=== PATIENT | female | born 1950 | race Caucasian/White ===

== ENCOUNTER 2019-02-14 14:35 | Emergency (ER) | payer OTHER ==
[2019-02-14 15:19] LABS: Urine Blood 3+ (NEG); Urine Glucose NEGATIVE (NEG); Urine Protein 2+ (NEG); Urine Specific Gravity >1.030 (1.005-1.030); Urine pH 5.5 (5.0-7.0)
[2019-02-14 15:27] LABS: Basophils % 0.4 % (0-1.3); Hematocrit 39.5 % (36.0-45.0); MPV 9.5 fL (7.6-11.3)
[2019-02-14 15:34] LABS: Urine Bacteria <20 /HPF (<20); Urine Culture Reflex Order NOT NEEDED; Urine RBC >50 /HPF (NONE SEEN)
[2019-02-14 15:40] LABS: Albumin 4.1 g/dL (3.4-5.0); Bilirubin Direct 0.2 mg/dL (0-0.2); Bilirubin Total 0.8 mg/dL (0.2-1.0); Potassium 4.1 mmol/L (3.5-5.1); Protein, Total 7.3 g/dL (6.4-8.2)
--- NOTE | 2019-02-14 15:42 | RAD REPORT ---
EXAM DESCRIPTION: CT - Stone Protocol - 02/14/2019 3:13 pm CLINICAL HISTORY: Abdominal pain. Right flank pain and nausea COMPARISON: 2017 TECHNIQUE: Computed axial tomography of the abdomen pelvis was obtained without oral or IV contrast. Lack of IV and oral contrast limits evaluation of solid organs, bowel, and vessels. Coronal reformat daiana images were obtained and reviewed. All CT scans are performed using dose optimization technique as appropriate and may include automated exposure control or mA/KV adjustment according to patient size. FINDINGS: 5 millimeter calculus right renal pelvis with mild hydronephrosis. Hounsfield unit 730. A left renal calculus is not seen. An ureteral calculus is not noted. A bladder calculus is not prese nt. Small renal cysts Postsurgical changes of an umbilical hernia repair are present. A ventral hernia to the left of midli ne within the mid abdomen contains a portion of nondilated colon. An additional left ventral hernia j ust below this contains fat. The neck measures 26 millimeters Fatty liver Spleen, pancreas and adrenals appear grossly normal There is no evidence of diverticulitis. The appendix appears normal Calcified uterine fibroids. 20 millimeter right adnexal mass unchanged may represent a paraovarian cy st IMPRESSION: 5 millimeter calculus right renal pelvis resulting in mild right hydronephrosis
[2019-02-14] MEDS ORDERED: TAMSULOSIN 0.4 MG SR CAP ONE (16:01)
[2019-02-14] MEDS ORDERED: KETOROLAC 30 MG/ML INJ ONE (16:01)
[2019-02-14] MEDS ORDERED: MAGNESIUM SULFATE 1 gm IVPB 1 GM/100 ML BAG IV ONE (16:02)
[2019-02-14] MEDS ORDERED: NA CHLORIDE 0.9% 500 ML ONE (16:17)
--- NOTE | 2019-02-14 18:09 | EDPHYS ---
Physician Documentation [facility] Name: Denae Kenny Age: 69 yrs Sex: Female : 1950 Arrival Date: 02/14/2019 Time: 14:38 Bed 18 Private MD: Reinier Padgett B ED Physician Ortiz Aquino HPI: 02/14 17:15 This 69 yrs old Female presents to ER via Ambulatory with complaints of Back rn Pain, Nausea. 17:15 The patient presents with pain that is acute. The symptoms are located in the right mid rn back. Onset: The symptoms/episode began/occurred this morning. The pain radiates to the pelvis. Associated signs and symptoms: Pertinent positives: abdominal pain, dysuria, nausea, Pertinent negatives: vomiting, weakness. Modifying factors: The patient symptoms are alleviated by nothing, the patient symptoms are aggravated by nothing. Severity of symptoms: At their worst the symptoms were moderate, in the emergency department the symptoms have improved. The patient has experienced a previous episode. Historical: - Allergies: 14:41 Codeine; la1 - PMHx: 14:41 Diabetes - NIDDM; Hypertension; la1 - PSHx: 14:41 SBO; Ear Tubes; Tonsillectomy; la1 - Immunization history:: Adult Immunizations up to date. - Social history:: Smoking status: Patient/guardian denies using tobacco. - Ebola Screening: : No symptoms or risks identified at this time. - Family history:: pertinent for kidney stones. - Hospitalizations: : No recent hospitalization is reported. ROS: 17:15 Constitutional: Negative for fever, chills, and weight loss, Eyes: Negative for injury, rn pain, redness, and discharge, Neck: Negative for injury, pain, and swelling, Cardiovascular: Negative for chest pain, palpitations, and edema, Respiratory: Negative for shortness of breath, cough, wheezing, and pleuritic chest pain, Abdomen/GI: Negative for vomiting, diarrhea, and constipation, Back: + right flank pain MS/Extremity: Negative for injury and deformity, Skin: Negative for injury, rash, and discoloration, Neuro: Negative for headache, weakness, numbness, tingling, and seizure. Exam: 17:15 Constitutional: This is a well developed, well nourished patient who is awake, alert, rn and in no acute distress. Head/Face: Normocephalic, atraumatic. Eyes: Pupils equal round and reactive to light, extra-ocular motions intact. Lids and lashes normal. Conjunctiva and sclera are non-icteric and not injected. Cornea within normal limits. Periorbital areas with no swelling, redness, or edema. ENT: MMM Cardiovascular: Regular rate and rhythm. No pulse deficits. Respiratory: No increased work of breathing, no retractions or nasal flaring. Abdomen/GI: soft, non-tender Back: No spinal tenderness. No costovertebral tenderness. Full range of motion. MS/ Extremity: Pulses equal, no cyanosis. Neurovascular intact. Full, normal range of motion. Equal circumference. Neuro: Awake and alert, GCS 15, oriented to person, place, time, and situation. Cranial nerves II-XII grossly intact. Motor strength 5/5 in all extremities. Sensory grossly intact. Vital Signs: 14:41 BP 218 / 82; Pulse 68; Resp 16; Temp 97.6; Pulse Ox 98% on R/A; Weight 86.18 kg; Height la1 5 ft. 4 in. (162.56 cm); 15:29 BP 175 / 76; Pulse 66; Resp 16; Pulse Ox 100% on R/A; hb 16:23 BP 180 / 66; Pulse 57; Resp 15; Pulse Ox 100% on R/A; hb 17:15 BP 182 / 67; Pulse 64; Resp 15; Pulse Ox 100% on R/A; hb 18:15 BP 176 / 86; Pulse 66; Resp 15; Pulse Ox 100% on R/A; hb 14:41 Body Mass Index 32.61 (86.18 kg, 162.56 cm) la1 MDM: 14:42 Patient medically screened. rn 18:04 Differential diagnosis: Ureterolithiasis. Data reviewed: vital signs, nurses notes, laborer plumbing test result(s), radiologic studies, CT scan, and as a result, I will discharge patient. Counseling: I had a detailed discussion with the patient and/or guardian regarding: the historical points, exam findings, and any diagnostic results supporting the discharge/admit diagnosis, lab results, radiology results, the need for outpatient follow up, to return to the emergency department if symptoms worsen or persist or if there are any questions or concerns that arise at home. Response to treatment: the patient's symptoms have markedly improved after treatment, the patient is now symptom free, and as a result, I will discharge patient. Special discussion: I discussed with the patient/guardian in detail that at this point there is no indication for admission to the hospital. It is understood, however, that if the symptoms persist or worsen the patient needs to return immediately for re-evaluation. Based on the history and exam findings, there is no indication for further emergent testing or inpatient evaluation. I discussed with the patient/guardian the need to see the urologist for further evaluation of the symptoms. ED course: Patient on phone, comfortable, denies pain, will dc home with 5mm ureteral stone, spoke with patient at length, patient agrees, wants trial of passage to avoid surgery/intervention, will dc home as comfortable and return precautions given. Told to f/u with Dr. Monae if needed. . 02/14 14:52 Order name: Basic Metabolic Panel; Complete Time: 15:45 rn 02/14 14:52 Order name: CBC with Diff rn 02/14 14:52 Order name: Hepatic Function; Complete Time: 15:45 rn 02/14 14:52 Order name: Lipase; Complete Time: 15:45 rn 02/14 14:52 Order name: Urine Microscopic Only rn 02/14 15:14 Order name: Urine Dipstick--Ancillary (enter results) mb4 02/14 14:52 Order name: IV Saline Lock; Complete Time: 15:27 rn 02/14 14:52 Order name: Labs collected and sent; Complete Time: 15:27 rn 02/14 14:52 Order name: CT Stone Protocol; Complete Time: 15:45 rn 02/14 15:19 Order name: Urine Dipstick-Ancillary EDMS 02/14 14:52 Order name: Urine Dipstick-Ancillary (obtain specimen); Complete Time: 15:27 rn Administered Medications: 16:22 Drug: Flomax 0.4 mg Route: PO; hb 16:22 Drug: TORadol - Ketorolac 15 mg Route: IVP; Site: right antecubital; hb 16:22 Drug: Magnesium Sulfate 1 grams Route: IVPB; Infused Over: 1 hrs; Site: right hb antecubital; 16:23 Drug: NS 0.9% 500 ml Route: IV; Rate: bolus; Site: right antecubital; hb Disposition: 02/14/19 18:08 Discharged to Home. Impression: Ureterolithiasis. - Condition is Stable. - Discharge Instructions: Kidney Stones, Dietary Guidelines to Help Prevent Kidney Stones. - Prescriptions for Zofran ODT 4 mg Oral tablet,disintegrating - place 1 tablet by TRANSLINGUAL route every 8 hours As needed; 20 tablet. Ultram 50 mg Oral Tablet - take 1 tablet by ORAL route every 8 hours As needed; 20 tablet. Flomax 0.4 mg Oral Capsule, Sust. Release 24 hr - take 1 capsule by ORAL route once daily 1/2 hour following the same meal each day; 5 capsule. - Medication Reconciliation Form, Thank You Letter, Antibiotic Education, Prescription Opioid Use form. - Follow up: Keyon Monae MD; When: As needed; Reason: Recheck today's complaints, Re-evaluation by your physician. - Problem is new. - Symptoms have improved. Signatures: Dispatcher [employer] EDMS Ortiz Aquino MD MD rn Attema, Lee, RN RN la1 Archana Beckman RN RN Corrections: (The following items were deleted from the chart) 18:32 18:08 02/14/2019 18:08 Discharged to Home. Impression: Ureterolithiasis. Condition is hb Stable. Forms are Medication Reconciliation Form, Thank You Letter, Antibiotic Education, Prescription Opioid Use. Follow up: Keyon Monae; When: As needed; Reason: Recheck today's complaints, Re-evaluation by your physician. Problem is new. Symptoms have improved. rn
--- NOTE | 2019-02-14 18:09 | ER ---
Nurse's Notes [facility] Name: Denae Kenny Age: 69 yrs Sex: Female : 1950 Arrival Date: 02/14/2019 Time: 14:38 Bed 18 Private MD: Reinier Padgett B Diagnosis: Ureterolithiasis Presentation: 02/14 14:40 Presenting complaint: Patient states: I have been feeling ill all day with nausea and la1 right flank/abd pain. Transition of care: patient was not received from another setting of care. Onset of symptoms was February 14, 2019. Risk Assessment: Do you want to hurt yourself or someone else? Patient reports no desire to harm self or others. Initial Sepsis Screen: Does the patient meet any 2 criteria? No. Patient's initial sepsis screen is negative. Does the patient have a suspected source of infection? No. Patient's initial sepsis screen is negative. Care prior to arrival: None. 14:40 Method Of Arrival: Ambulatory la1 14:40 Acuity: YANDEL 3 la1 Historical: - Allergies: 14:41 Codeine; la1 - PMHx: 14:41 Diabetes - NIDDM; Hypertension; la1 - PSHx: 14:41 SBO; Ear Tubes; Tonsillectomy; la1 - Immunization history:: Adult Immunizations up to date. - Social history:: Smoking status: Patient/guardian denies using tobacco. - Ebola Screening: : No symptoms or risks identified at this time. - Family history:: pertinent for kidney stones. - Hospitalizations: : No recent hospitalization is reported. Screenin:29 Abuse screen: Denies threats or abuse. Denies injuries from another. Nutritional hb screening: No deficits noted. Tuberculosis screening: No symptoms or risk factors identified. Fall Risk None identified. Assessment: 14:46 General: Appears in no apparent distress. Behavior is calm, cooperative. Pain: Pain hb currently is 4 out of 10 on a pain scale. Neuro: Level of Consciousness is awake, alert, obeys commands, Oriented to person, place, time, situation. Cardiovascular: Capillary refill < 3 seconds Patient's skin is warm and dry. Respiratory: Airway is patent Respiratory effort is even, unlabored, Respiratory pattern is regular, symmetrical. GI: No signs and/or symptoms were reported involving the gastrointestinal system. : Reports right flank pain. EENT: No signs and/or symptoms were reported regarding the EENT system. Derm: Skin is pink, warm \T\ dry. Musculoskeletal: No signs and/or symptoms reported regarding the musculoskeletal system. 15:29 Reassessment: Patient appears in no apparent distress at this time. No changes from hb previously documented assessment. Patient and/or family updated on plan of care and expected duration. Pain level reassessed. Patient is alert, oriented x 3, equal unlabored respirations, skin warm/dry/pink. 16:23 Reassessment: Patient appears in no apparent distress at this time. No changes from hb previously documented assessment. Patient and/or family updated on plan of care and expected duration. Pain level reassessed. Patient is alert, oriented x 3, equal unlabored respirations, skin warm/dry/pink. 17:15 Reassessment: Patient appears in no apparent distress at this time. No changes from hb previously documented assessment. Patient and/or family updated on plan of care and expected duration. Pain level reassessed. Patient is alert, oriented x 3, equal unlabored respirations, skin warm/dry/pink. 18:15 Reassessment: Patient appears in no apparent distress at this time. Patient and/or hb family updated on plan of care and expected duration. Pain level reassessed. Patient is alert, oriented x 3, equal unlabored respirations, skin warm/dry/pink. Vital Signs: 14:41 BP 218 / 82; Pulse 68; Resp 16; Temp 97.6; Pulse Ox 98% on R/A; Weight 86.18 kg; Height la1 5 ft. 4 in. (162.56 cm); 15:29 BP 175 / 76; Pulse 66; Resp 16; Pulse Ox 100% on R/A; hb 16:23 BP 180 / 66; Pulse 57; Resp 15; Pulse Ox 100% on R/A; hb 17:15 BP 182 / 67; Pulse 64; Resp 15; Pulse Ox 100% on R/A; hb 18:15 BP 176 / 86; Pulse 66; Resp 15; Pulse Ox 100% on R/A; hb 14:41 Body Mass Index 32.61 (86.18 kg, 162.56 cm) la1 ED Course: 14:38 Patient arrived in ED. mr 14:38 Reinier Padgett MD is Private Physician. mr 14:40 Triage completed. la1 14:40 Patient has correct armband on for positive identification. Bed in low position. Call hb light in reach. Side rails up X 1. 14:42 Ortiz Aquino MD is Attending Physician. rn 14:42 Arm band placed on left wrist. la1 14:46 Inserted saline lock: 20 gauge in right antecubital area, using aseptic technique. hb Blood collected. 15:12 CT completed. Patient tolerated procedure well. Patient moved to DC. Patient moved back dc from CT. 15:27 Archana Beckman, RN is Primary Nurse. hb 15:27 Urine Dipstick--Ancillary (enter results) Sent. hb 15:30 CT Stone Protocol In Process Unspecified. EDMS 18:07 Keyon Monae MD is Referral Physician. rn 18:32 No provider procedures requiring assistance completed. IV discontinued, intact, hb bleeding controlled, No redness/swelling at site. Pressure dressing applied. Administered Medications: 16:22 Drug: Flomax 0.4 mg Route: PO; hb 16:22 Drug: TORadol - Ketorolac 15 mg Route: IVP; Site: right antecubital; hb 16:22 Drug: Magnesium Sulfate 1 grams Route: IVPB; Infused Over: 1 hrs; Site: right hb antecubital; 16:23 Drug: NS 0.9% 500 ml Route: IV; Rate: bolus; Site: right antecubital; hb Outcome: 18:08 Discharge ordered by MD. rn 18:32 Discharged to home ambulatory. hb 18:32 Condition: stable 18:32 Discharge instructions given to patient, Instructed on discharge instructions, follow up and referral plans. medication usage, Demonstrated understanding of instructions, follow-up care, medications, Prescriptions given X 3. 18:32 Patient left the ED. hb Signatures: Dispatcher [employer] [facility] JamesKalyn Ortiz Aquino MD MD rn Attema, Lee, RN RN la1 Archana Beckman RN RN hb Jordan, Nathan nj
== END 2019-02-14 18:32 | disposition home or self-care (01) ==
LOC: ER 14:35
DX: N20.1 Calculus of ureter (principal); Z88.6 Allergy status to analgesic agent
CPT/HCPCS: 85025; 80048; 36415; 80076; 83690; 76377; 74176; J3475; 81003; 81015; 96374; 96375; 99284